=== PATIENT | female | born 1995 | race Caucasian/White ===

== ENCOUNTER 2020-01-12 23:58 | Emergency (ER) | payer OTHER, SELFPAY ==
--- NOTE | ~2020-01-12 | XR_ITS ---
EXAMINATION: XR chest 1V portable DATE: 01/13/2020 00:42 INDICATION: Transient alteration of awareness TECHNIQUE: frontal view of the chest was obtained. COMPARISON: Chest radiograph dated 06/06/2015 FINDINGS: The lungs remain clear with no focal airspace opacities, pulmonary edema, pleural effusion or pneumot horax. The cardiomediastinal silhouette is normal. Visualized bones and soft tissues are unremarkable . IMPRESSION: 1. No acute cardiopulmonary disease. Reviewed, dictated and finalized at location A.
--- NOTE | 2020-01-13 00:01 | PC.NURSE ---
Patient given 2mg Narcan via IVP and patient became alert to self only. Patient unsure of what happened this evening.
--- NOTE | 2020-01-13 00:02 | PC.NURSE ---
Patient placed on 4L of oxygen via NC d/t patient's pulse ox at 78% on RA. After placing patient on oxygen her O2 sat increased to 97%.
[2020-01-13 00:04] VITALS: PULSE 111; RESP 20; TEMP 36.7
--- NOTE | 2020-01-13 00:11 | ED.AMS ---
HPI - Altered Mental Status General Chief Complaint: Overdose Stated Complaint: unresponsive Time Seen by Provider: 01/13/20 00:08 Source: RN notes reviewed History of Present Illness HPI narrative: Patient presents emergency department for altered mental status. Patient friends pulled up and patient was unresponsive in the back of the car. They are unsure what happened of the patient states she had been fighting with her mother and to come to their house.. Patient is unresponsive with agonal respirations Related Data Allergies Allergy/AdvReac Type Severity Reaction Status Date / Time No Known Allergies Allergy Unknown Verified 12/12/17 20:48 Review of Systems Review of Systems: ROS unobtainable: Yes unobtainable due to medical condition PMF Past Medical History Medical History (Updated 01/13/20 @ 03:20 by Willie Nassar DO) Patient denies significant medical history Social History Social History (Updated 01/13/20 @ 00:12 by Willie Nassar DO) Smoking status: Smoker, status unknown Exam Narrative: Exam Narrative: APPEARANCE: Unresponsive in room agonal respirations EYES: Bilateral pupils pinpoint HEENT: Normocephalic, atraumatic, OMM RESPIRATORY: No respiratory distress Clear to auscultation bilaterally with no rhonchi wheezing or rales. CARDIOVASCULAR: Regular rate and rhythm without murmurs rubs or gallops. ABDOMINAL: Soft, nontender, nondistended, no rebound or guarding MUSCULOSKELETAl: Moves all extremities. No clubbing, cyanosis or edema. NEURO: Unresponsive in room to painful and verbal stimuli SKIN:: Warm, dry. No rashes lesions or abrasions PSYCHIATRIC: Normal affect/mood, Course Course Emergency Course: Patient brought back from car into H2. IV and started placed on nonrebreather given 2 of Narcan with instant improvement of mental status. The patient is now awake and alert x3. She states she was drinking this evening. She states she does take opioid pain medication Patient now wishing to leave AGAINST MEDICAL ADVICE. Patient is remained awake and alert x3. I asked the patient if she did any other drugs this evening and she will not answer at this time. She denies any suicidal homicidal ideation. Patient has chosen to refuse further care. Risks of an incomplete evaluation and treatment were discussed with the patient including potential for or permanent disability were discussed with the patient seems to understand these risks but still desires to refuse further care. Discussed with patient the short life span of Narcan compared to opioids and the risk that when the Narcan wears off the patient may again suffer respiratory arrest leading to . Patient understands these risks patient recommended to follow up with her primary care physician in the next possible interval, specifically they?re told they can return to the ED at any time to resume care. Of note when the patient left she did take her urine sample with her Vital Signs Vital signs: Vital Signs Temperature 98.0 F 01/13/20 00:04 Pulse Rate 111 H 01/13/20 00:04 Respiratory Rate 20 01/13/20 00:04 Temperature 98.0 F 01/13/20 00:04 Pulse Rate 89 01/13/20 00:13 Respiratory Rate 15 01/13/20 00:13 Blood Pressure 116/78 01/13/20 00:13 Pulse Oximetry 100 01/13/20 00:13 MDM - Altered Mental Status Lab Data Result diagrams: 01/13/20 00:15 01/13/20 00:15 Labs: Lab Results 01/13/20 01/13/20 01/13/20 Range/Units 00:15 00:15 00:15 WBC 9.0 (4.5-10.0) K/mm3 RBC 4.65 (4.2-5.4) M/mm3 Hgb 13.6 (12.0-15.0) g/dL Hct 40.6 (37.0-47.0) % MCV 87.3 (80-100) fl MCH 29.2 (26-34) pg MCHC 33.5 (32-36) g/dl RDW 15.0 H (11.5-14.5) % Plt Count 332 (150-375) k/mm3 MPV 10.8 H (7.4-10.4) fl Immature Gran % (Auto) 0.2 (0-0.5) % Neut % (Auto) 40.1 L (45.5-73.1) % Lymph % (Auto) 51.9 H (18.3-44.2) % [place] % (Auto) 6.2
[2020-01-13 00:13] VITALS: BP 116/78; PULSE 89; RESP 15; O2SAT 100
[2020-01-13] MEDS: SODIUM CHLORIDE 0.9% IV 1,000 ML 999 ML IV CONT (00:14)
--- NOTE | 2020-01-13 00:20 | PC.NURSE ---
Patient taken of oxygen, patient at 100% RA.
[2020-01-13 00:22] LABS: Basophils Percent Auto 0.3 % (0.2-1.2); Eosinophils Absolute Auto 0.1 K/mm3 (0-0.3); Eosinophils Percent Auto 1.3 % (0-4.4); Hematocrit 40.6 % (37.0-47.0); Hemoglobin 13.6 g/dL (12.0-15.0); Immature Granulocyte Absolute 0.02 K/mm3 (0.00-0.031); Immature Granulocyte Percent A 0.2 % (0-0.5); Lymphocytes Absolute Auto 4.67 K/mm3 (0.9-3.2); Lymphocytes Percent Auto 51.9 % (18.3-44.2); Mean Corpuscular HGB Conc 33.5 g/dl (32-36); Mean Corpuscular Hemoglobin 29.2 pg (26-34); Mean Corpuscular Volume 87.3 fl (80-100); Mean Platelet Volume 10.8 fl (7.4-10.4); Monocytes Absolute Auto 0.6 K/mm3 (0.1-0.6); Monocytes Percent Auto 6.2 % (2.6-8.5); Neutrophils Absolute Auto 3.6 K/mm3 (1.3-6.7); Neutrophils Percent Auto 40.1 % (45.5-73.1); Platelet Count Result 332 k/mm3 (150-375); Red Blood Count 4.65 M/mm3 (4.2-5.4)
--- NOTE | 2020-01-13 00:32 | PC.NURSE ---
Patient ambulated to the bathroom with a steady gait.
--- NOTE | 2020-01-13 00:40 | PC.NURSE ---
Patient requesting to leave AMA. Patient informed of her risks of leaving and the benefits of staying. Patient stating I'm aware, I just want to leave. I thank you all for saving my life, but I feel fine right now and someone is on their way to come pick me up. ERP Dr. Nassar also in room informing patient of the risks of leaving AMA and her condition on when she arrived. Patient A/O x3 and ambulates with a steady gait. Patient signed AMA form in presence of this RN and ERP .
[2020-01-13 00:42] LABS: Alanine Aminotransferase 12 U/L (4-35); Albumin Level 4.8 g/dL (3.5-5.1); Alkaline Phosphatase 92 U/L (38-126); Aspartate Amino Transferase 29 U/L (14-36); Bilirubin,Total 0.2 mg/dL (0.2-1.3); Blood Urea Nitrogen 12 mg/dL (7-17); Calcium 8.9 mg/dL (8.4-10.2); Carbon Dioxide 26 mmol/L (22-30); Chloride 104 mmol/L (98-107); Estimated Glomerular Filt Rate > 60; Glucose 124 mg/dL (65-105); Potassium 4.5 mmol/L (3.4-5.0); Sodium 141 mmol/L (137-145)
[2020-01-13 00:48] LABS: Ethanol 206 mg/dL (<10)
[2020-01-13 00:50] LABS: Acetaminophen < 10 ug/mL (10-30)
== END 2020-01-13 00:51 | disposition left against medical advice (07) ==
LOC: ANHED 01-13 00:08
PROVIDERS: Emergency Provider Emergency Medicine
DX: T40.2X1A Poisoning by other opioids, accidental (unintentional), initial encounter (principal)
CPT/HCPCS: 36415; 71045; 80053; 80307; 85025; 96360; 99283; J7030

== ENCOUNTER 2020-11-23 12:37 | Emergency (ER) | payer OTHER, SELFPAY ==
[2020-11-23 12:46] VITALS: BP 109/75; PULSE 100; RESP 16; TEMP 36.2; O2SAT 100
--- NOTE | 2020-11-23 12:48 | ED.FEMALEGU ---
HPI - Female Genitourinary General Chief complaint: Urogenital-Female Stated complaint: UTI Time Seen by Provider: 11/23/20 12:49 Source: patient Mode of arrival: ambulatory Limitations: no limitations History of Present Illness HPI Narrative: Sue Cabrera is a 25 yo female with PMH of drug abuse who comes to [facility] with complaints of frequency and lower abdominal pain x 2 days, states that urine has odor. She has tried drinking fluids to increase urination but she says at times when she goes to the bathroom she cannot urinate; has had UTIs in the past Related Data Allergies Allergy/AdvReac Type Severity Reaction Status Date / Time No Known Allergies Allergy Unknown Verified 11/23/20 12:49 Review of Systems Review of Systems: Narrative: CONSTITUTIONAL: Denies fever, chills, sweats. EYES: Denies visual changes, redness, discharge. ENT: Denies rhinorrhea, congestion, sore throat, otalgia. CARDIOVASCULAR: Denies chest pain, palpitations, edema. RESPIRATORY: Denies dyspnea, wheezing, cough GASTROINTESTINAL: Denies abdominal pain, nausea, vomiting, diarrhea. Lower abdominal pain and urinary frequency GENITOURINARY: Denies dysuria, hematuria, abnormal discharge SKIN: Denies rash or itching. NEUROLOGIC: Denies numbness, or focal weakness. PSYCHIATRIC: Denies anxiety or depression. PMFSH Past Medical History Medical History Bipolar disorder Drug addiction Family History Family History Other No acute medical problems Social History Social History (Updated 11/23/20 @ 13:06 by Kim Montalvo CNP) Smoking packs per day: 0.5 Smoking cigarettes per day: 10.0 Smoking status: Current every day smoker Tobacco type: cigarettes Alcohol intake: former Substance use: current Substance use type: opiates Comments At time of signature, I agree with nursing past medical, surgical, social and family history. There is no relevant family history pertinent to the presenting complaint. Exam Narrative: Exam Narrative: GENERAL: This is a well-nourished, well-developed patient, in mild distress. HEAD: normocephalic, atraumatic. EYES: Sclera clear/white. Vision is grossly intact. EARS: External ears normal, Hearing grossly intact. NOSE: External nose normal without nasal discharge, nares without redness, no rhinorrhea. THROAT: Mucous membranes moist, NECK: Neck supple, CARDIOVASCULAR: Regular rate and rhythm without murmurs, gallops, or rubs. RESPIRATORY: Clear to auscultation. Breath sounds equal bilaterally. No wheezes, rales, or rhonchi. GASTROINTESTINAL: Abdomen soft, tender, low abdomen SKIN: warm, intact with no suspicious lesions or rash, good texture and turgor. NEURO: awake, alert, and oriented to person, place and time. There were no obvious focal neurologic abnormalities. Steady gait EXTREMITIES: Normal range of motion. BACK: Nontender without deformity Course Course Emergency Course: Patient comes to [facility] with complaints of lower abdominal pain and frequency x2 days UA results-positive for nitrites and leukocyte esterase Started on cephalexin 500 mg 1 twice daily x5 days; encouraged to increase fluid intake Vital Signs Vital signs: Vital Signs Temperature 97.2 F L 11/23/20 12:46 Pulse Rate 100 11/23/20 12:46 Respiratory Rate 16 11/23/20 12:46 Blood Pressure 109/75 11/23/20 12:46 Pulse Oximetry 100 11/23/20 12:46 Temperature 97.2 F L 11/23/20 12:46 Pulse Rate 100 11/23/20 12:46 Respiratory Rate 16 11/23/20 12:46 Blood Pressure 109/75 11/23/20 12:46 Pulse Oximetry 100 11/23/20 12:46 MDM - Female Genitourinary Differential Diagnosis Differential diagnosis: Likely urinary tract infection, cervicitis, ruptured ovarian cyst and cystitis Lab Data Labs: Urine Glucose Negative
== END 2020-11-23 13:15 | disposition home or self-care (01) ==
PROVIDERS: Emergency Provider Nurse Practitioner
DX: N30.90 Cystitis, unspecified without hematuria (principal); F17.210 Nicotine dependence, cigarettes, uncomplicated
CPT/HCPCS: 81003; 87077; 87086; 87088; 87186; 99213; G0463

== ENCOUNTER 2020-12-24 16:11 | Emergency (ER) | payer OTHER, SELFPAY ==
[2020-12-24 16:15] VITALS: PULSE 90; RESP 16; TEMP 36.5; O2SAT 100
--- NOTE | 2020-12-24 16:21 | ED.FEMALEGU ---
HPI - Female Genitourinary General Chief complaint: Urogenital-Female Stated complaint: UTI Time Seen by Provider: 12/24/20 16:15 Source: patient and RN notes reviewed Mode of arrival: ambulatory Limitations: no limitations History of Present Illness HPI Narrative: 25-year-old female presents to the [facility] with complaints of I think my UTIs back. Patient states that she did take all of her medication. Was seen here on November 23 for similar symptoms. Patient reports that she has had urinary frequency and urgency. States that when she goes does not feel like she empties her bladder. Denies . Denies fevers. No abdominal pain, back pain. No chest pain or shortness of breath. States that her urine smells very concentrated. Related Data Home Medications Medication Instructions Recorded Confirmed No Home Medications 12/24/20 12/24/20 Allergies Allergy/AdvReac Type Severity Reaction Status Date / Time No Known Allergies Allergy Unknown Verified 12/24/20 16:28 Review of Systems Review of Systems: All systems reviewed & are unremarkable except as noted in HPI and below Constitutional: Constitutional: Reports no additional constitutional complaints, Denies chills and Denies fatigue Eyes: Eyes: Reports no additional eye complaints Cardiovascular: Cardiovascular: Reports no additional cardiovascular complaints and Denies chest pain Respiratory: Respiratory: Reports no additional respiratory complaints, Denies cough and Denies dyspnea Gastrointestinal: Gastrointestinal: Reports no additional gastrointestinal complaints, Denies abdominal pain, Denies diarrhea, Denies nausea and Denies vomiting Genitourinary: Genitourinary: Reports as per HPI, Reports nocturia, Reports dysuria, Denies pelvic pain, Denies flank pain and Denies vaginal discharge Musculoskeletal: Musculoskeletal: Reports no additional musculoskeletal complaints and Denies back pain Integumentary/Breasts: Skin/Breast: Reports system reviewed and no additional complaints, except as docu, Denies erythema and Denies rash Neurologic: Reports system reviewed and no additional complaints, except as documented, Denies dizziness, Denies syncope, Denies headache(s), Denies focal weakness, Denies numbness and Denies weakness Psychiatric: Psychiatric: Reports no additional psychiatric complaints Allergic/Immunologic: Allergic/Immunologic: Reports no additional allergic/immunologic complaints, Denies lip swelling, Denies throat swelling, Denies tongue swelling and Denies wheezing PMFSH Past Medical History Medical History Bipolar disorder Drug addiction Family History Family History Other No acute medical problems Social History Social History Smoking packs per day: 0.5 Smoking cigarettes per day: 10.0 Smoking status: Current every day smoker Tobacco type: cigarettes Alcohol intake: former Substance use: current Substance use type: opiates Gender identity (if verbalized by the patient): Female Comments At the time of my signature, I reviewed and agree with the nursing past medical, surgical, social, and family history. There is no relevant family history pertinent to the patient complaint. Exam Const: General: healthy appearing, no acute distress and alert Nutritional Appearance: well nourished Orientation/consciousness: patient oriented x3 Limitations: no limitations HENMT: Head: normal to inspection Eyes: Pupils: Equal, round and reactive pupils present Neck: Neck: normal visual inspection, no lymphadenopathy and no meningeal signs Chest: Chest palpation & inspection: normal inspection of the chest Resp: Effort & Inspection: normal respiratory effort and no use of accessory muscles Auscultation: clear to auscultation bilaterally, no crackles, no rales, no rhonchi and
== END 2020-12-24 16:35 | disposition home or self-care (01) ==
PROVIDERS: Emergency Provider Nurse Practitioner; PCP Family Medicine
DX: R30.0 Dysuria (principal)
CPT/HCPCS: 81003; 81025; 99213; G0463

== ENCOUNTER 2021-06-30 13:06 | Emergency (ER) | payer OTHER, SELFPAY ==
[2021-06-30 13:13] VITALS: BP 109/62; PULSE 97; RESP 16; TEMP 37.1; O2SAT 100
--- NOTE | 2021-06-30 14:40 | PC.NURSE ---
[id number] registration informed staff pt was just seen walking out. pt not in room or building at this time.
== END 2021-06-30 13:20 | disposition left against medical advice (07) ==
PROVIDERS: Emergency Provider Nurse Practitioner; PCP Family Medicine
DX: Z53.21 Procedure and treatment not carried out due to patient leaving prior to being seen by health care provider (principal)
CPT/HCPCS: 99199